=== PATIENT | female | born 1995 | race Caucasian/White ===

== ENCOUNTER → 2021-01-18 | Outpatient (REF) | payer MEDICAID, OTHER ==
[2021-01-18 13:04] LABS: HEMATOCRIT 39.6 % (36.0-47.0); MEAN CORPUSCULAR HEMOGLOBIN 29.7 pg (27.0-33.0); MEAN CORPUSCULAR HGB CONC 32.8 g/dl (32.0-36.5); MEAN CORPUSCULAR VOLUME 90.6 fl (80.0-96.0); PLATELET COUNT, AUTOMATED 394 10^3/uL (150-450); RED BLOOD COUNT 4.37 10^6/uL (4.00-5.40); WHITE BLOOD COUNT 10.1 10^3/uL (4.0-10.0)
[2021-01-18 14:01] LABS: HCG, SERUM QUANTITATIVE 91950 MIU/ML
[2021-01-18 14:18] LABS: HEPATITIS C VIRUS ABY INDEX < 0.0 INDEX (<0.8)
[2021-01-18 14:19] LABS: HIV 1&2 SCREEN CENTAUR NEGATIVE (NEGATIVE)
== END ==
LOC: M LAB REF 12:10
PROVIDERS: ATTEND Obstetrics & Gynecology
DX: Z32.01 Encounter for pregnancy test, result positive (principal); O36.80X0 Pregnancy with inconclusive fetal viability, not applicable or unspecified; Z3A.00 Weeks of gestation of pregnancy not specified

== ENCOUNTER → 2021-03-24 | Outpatient (REF) | payer MEDICAID | LOC: M LAB REF 16:25 | PROVIDERS: ATTEND Advanced Practice Midwife | DX: Z32.01 Encounter for pregnancy test, result positive (principal); O36.80X0 Pregnancy with inconclusive fetal viability, not applicable or unspecified ==